=== PATIENT | female | born 2000 | race Hispanic/Latino ===

== ENCOUNTER 2018-12-11 21:00 | Emergency (ER) | payer MEDICAID, OTHER ==
[2018-12-11] MEDS ORDERED: LIDOCAINE 2%-EPI 1:200,000 20 ML VIAL IJ ONE (21:34)
[2018-12-11] MEDS ORDERED: CLINDAMYCIN 600 MG/D5% WATER 50 ML IV ONE (21:34)
[2018-12-11] MEDS ORDERED: ACETAMINOPHEN EXTRA STRENGTH 500 MG TABLET ONE (21:34)
[2018-12-11] MEDS ORDERED: SODIUM CHLORIDE 0.9% 1000ML 1,000 ML IV ONE (21:35)
[2018-12-11] MEDS ORDERED: MORPHINE SULFATE 4 MG/1ML SYG ONE (21:37)
[2018-12-11] MEDS ORDERED: ONDANSETRON HCL 4 MG/2 ML VIAL ONE (21:37)
[2018-12-11 21:43] LABS: BASOPHILS % (AUTO) 0.5 % (0.0-5.0); EOSINOPHILS % (AUTO) 0.7 % (0.0-8.0); HEMATOCRIT 35.6 % (36-48); LYMPHOCYTES % (AUTO) 14.9 % (21.0-51.0); MEAN CORPUSCULAR HEMOGLOBIN 30.2 pg (27.0-33.0); MEAN CORPUSCULAR HGB CONC 34.2 g/dL (32.0-36.0); MEAN CORPUSCULAR VOLUME 88.2 fL (80-100); MONOCYTES % (AUTO) 9.3 % (3.0-13.0); NEUTROPHILS % (AUTO) 74.6 % (40.0-77.0); PLATELET COUNT (AUTO) 223 K/uL (130-400); RED BLOOD CELL COUNT(AUTO) 4.04 MIL/uL (4.00-5.50); WHITE BLOOD COUNT (AUTO) 14.9 K/uL (4.8-10.8)
[2018-12-11 22:13] LABS: CREATININE 0.7 mg/dL (0.5-1.5); POTASSIUM 3.2 mmol/L (3.5-5.1)
[2018-12-11 22:23] LABS: ALBUMIN 3.9 g/dL (3.5-5.0); BILIRUBIN,TOTAL 0.4 mg/dL (0.2-1.0)
== END 2018-12-11 23:00 | disposition home or self-care (01) ==
LOC: EDH 21:00
DX: L02.31 Cutaneous abscess of buttock (principal); L03.317 Cellulitis of buttock; Z72.0 Tobacco use
CPT/HCPCS: 10061; 36415; 80053; 82550; 83605; 85025; 87040; 96365; 96375; 99284; J2270; J2405; J3490 ×2; J7030

== ENCOUNTER 2019-03-12 18:09 | Emergency (ER) | payer OTHER ==
[2019-03-12] MEDS ORDERED: FAMOTIDINE 20MG TAB 20 MG TAB ONE (18:45)
[2019-03-12] MEDS ORDERED: METHYLPREDNISOLONE SOD SUCC 40MG/ML 1ML ONE (18:45)
[2019-03-12] MEDS ORDERED: DiphenhydrAMINE HCL 50 MG/ML VIAL ONE (18:45)
== END 2019-03-12 19:16 | disposition home or self-care (01) ==
LOC: EDH 18:09
DX: L50.0 Allergic urticaria (principal)
CPT/HCPCS: 96372 ×2; 99284; J1200; J2920

== ENCOUNTER 2020-09-18 13:36 | Emergency (ER) | payer OTHER ==
[2020-09-18] MEDS ORDERED: IBUPROFEN 400 MG TABLET ONE (13:58)
== END 2020-09-18 15:53 | disposition home or self-care (01) ==
LOC: EDH 13:36
DX: S13.4XXA Sprain of ligaments of cervical spine, initial encounter (principal); Z72.0 Tobacco use; V89.2XXA Person injured in unspecified motor-vehicle accident, traffic, initial encounter; Y93.89 Activity, other specified; Y92.488 Other paved roadways as the place of occurrence of the external cause; Y99.8 Other external cause status
CPT/HCPCS: 72040